=== PATIENT | female | born 1955 | race Caucasian/White ===

== ENCOUNTER 2022-06-24 02:00 | Emergency (ER) | payer BC, MEDICARE ==
[~2022-06-24] VITALS: Ht 160 cm; Wt 94.6 kg
[2022-06-24] MEDS ORDERED: FURO40TA2 PO (02:24)
[2022-06-24] MEDS ORDERED: LOSA100T45 PO (02:24)
[2022-06-24] MEDS ORDERED: OMEG1CAP85 PO (02:24)
[2022-06-24] MEDS ORDERED: BUSP10TA PO (02:24)
[2022-06-24] MEDS ORDERED: POTA10808 PO (02:24)
[2022-06-24] MEDS ORDERED: OXCA300T14 PO ×2 (02:24)
[2022-06-24] MEDS ORDERED: HYDR-3911 PO (02:24)
[2022-06-24] MEDS ORDERED: GLUC1TAB58 PO (02:24)
[2022-06-24] MEDS ORDERED: DILT1CAP46 PO (02:24)
[2022-06-24] MEDS ORDERED: D-50CAP PO (02:24)
[2022-06-24] MEDS ORDERED: TAMS1CAP17 PO (02:24)
[2022-06-24] MEDS ORDERED: NP T60TA PO (02:24)
[2022-06-24] MEDS ORDERED: ZINC220CA PO (02:24)
[2022-06-24] MEDS ORDERED: BISO10TA14 PO (02:24)
[2022-06-24] MEDS ORDERED: MONT10TA97 PO (02:24)
[2022-06-24] MEDS ORDERED: CLON1TAB8 PO (02:24)
[2022-06-24] MEDS ORDERED: VITA-243 PO (02:24)
[2022-06-24] MEDS ORDERED: VITMTA PO (02:24)
[2022-06-24 03:53] LABS: BASO # 0.1 10^3/uL (0.0-0.2); EOS # 0.2 10^3/uL (0.0-0.5); EOS % 2.5 % (0.0-3.0); HEMATOCRIT 35.3 % (36.0-47.0); HEMOGLOBIN 12.2 g/dl (12.0-15.5); LYMPH # 1.5 10^3/uL (1.5-5.0); LYMPH % 24.2 % (24.0-44.0); MEAN CORPUSCULAR HEMOGLOBIN 31.6 pg (27.0-33.0); MEAN CORPUSCULAR HGB CONC 34.6 g/dl (32.0-36.5); MEAN CORPUSCULAR VOLUME 91.5 fl (80.0-96.0); MONO # 0.7 10^3/uL (0.0-0.8); MONO % 11.8 % (2.0-8.0); NEUTROPHILS # 3.7 10^3/uL (1.5-8.5); NEUTROPHILS % 60.3 % (36.0-66.0); PLATELET COUNT, AUTOMATED 331 10^3/uL (150-450); RED BLOOD COUNT 3.86 10^6/uL (4.00-5.40); WHITE BLOOD COUNT 6.1 10^3/uL (4.0-10.0)
[2022-06-24 04:29] LABS: ALBUMIN 3.9 G/DL (3.2-5.2); ALKALINE PHOSPHATASE 106 U/L (46-116); ALT/SGPT 107 U/L (7.0-40); AST/SGOT 38 U/L (<34); BILIRUBIN,TOTAL 0.3 MG/DL (0.3-1.2); BLOOD UREA NITROGEN 10 MG/DL (9-23); CARBON DIOXIDE LEVEL 28 MMOL/L (20-31); CHLORIDE LEVEL 93 MMOL/L (98-107); CREATININE FOR GFR 0.55 MG/DL (0.55-1.30); GLOMERULAR FILTRATION RATE > 60.0 (>45); GLUCOSE, FASTING 113 MG/DL (74-106); MAGNESIUM LEVEL 1.8 MG/DL (1.8-2.4); POTASSIUM SERUM 4.4 MMOL/L (3.5-5.1); SODIUM LEVEL 128 MMOL/L (136-145)
[2022-06-24 07:15] VITALS: BP 149/70
[2022-06-24 09:10] LABS: ETHYL ALCOHOL (ETHANOL) 0.003 % (0.000-0.010)
[2022-06-24 09:12] LABS: SALICYLATE LEVEL < 3.0 MG/DL (<30)
[2022-06-24 09:13] LABS: ACETAMINOPHEN LEVEL < 2.0 UG/ML (10.0-20.0)
[2022-06-24 09:30] LABS: ALBUMIN 3.7 G/DL (3.2-5.2); ALKALINE PHOSPHATASE 97 U/L (46-116); ALT/SGPT 100 U/L (7.0-40); AST/SGOT 35 U/L (<34); BILIRUBIN,DIRECT < 0.1 MG/DL (<0.4); BILIRUBIN,TOTAL 0.3 MG/DL (0.3-1.2); BLOOD UREA NITROGEN 9 MG/DL (9-23); CALCIUM LEVEL 8.7 MG/DL (8.3-10.6); CARBON DIOXIDE LEVEL 27 MMOL/L (20-31); CHLORIDE LEVEL 94 MMOL/L (98-107); CREATININE FOR GFR 0.56 MG/DL (0.55-1.30); GLOMERULAR FILTRATION RATE > 60.0 (>45); GLUCOSE, FASTING 101 MG/DL (74-106); POTASSIUM SERUM 4.4 MMOL/L (3.5-5.1); SODIUM LEVEL 129 MMOL/L (136-145); TOTAL PROTEIN 6.6 G/DL (5.7-8.2)
== END 2022-06-24 10:35 | disposition home or self-care (01) ==
LOC: M ED 02:00
DX: T44.7X2A Poisoning by beta-adrenoreceptor antagonists, intentional self-harm, initial encounter (principal); T42.4X1A Poisoning by benzodiazepines, accidental (unintentional), initial encounter; T42.6X1A Poisoning by other antiepileptic and sedative-hypnotic drugs, accidental (unintentional), initial encounter; T42.6X2A Poisoning by other antiepileptic and sedative-hypnotic drugs, intentional self-harm, initial encounter; T48.6X1A Poisoning by antiasthmatics, accidental (unintentional), initial encounter; R74.01 Elevation of levels of liver transaminase levels; E87.1 Hypo-osmolality and hyponatremia; E07.9 Disorder of thyroid, unspecified; J45.909 Unspecified asthma, uncomplicated; F41.9 Anxiety disorder, unspecified; F32.9 Major depressive disorder, single episode, unspecified; F17.200 Nicotine dependence, unspecified, uncomplicated; Z79.899 Other long term (current) drug therapy; Z88.0 Allergy status to penicillin